=== PATIENT | male | born 1995 | race Two or more races ===

== ENCOUNTER 2024-07-13 13:38 | Emergency (ER) | payer SELFPAY ==
[2024-07-13 13:46] VITALS: BP 134/75; PULSE 103; RESP 20; TEMP 98.4; BMI 33.8
[2024-07-13] MEDS ORDERED: METOCLOPRAMIDE HCL INJECTION 10 MG/2 ML VIAL ONE (14:06)
[2024-07-13] MEDS ORDERED: KETOROLAC TROMETHAMINE 30 MG/1 ML VIAL ONE (14:06)
[2024-07-13] MEDS: KETOROLAC TROMETHAMINE 30 MG/1 ML VIAL IVPUSH ONE (14:20)
[2024-07-13] MEDS: METOCLOPRAMIDE HCL INJECTION 10 MG/2 ML VIAL IVPUSH ONE (14:20)
[2024-07-13] MEDS: SODIUM CHLORIDE 1,000 ML IV STA (14:20)
[2024-07-13 14:31] LABS: ABSOLUTE IMMATURE GRANULOCYTES 0.03 x10^3/uL (0.0-0.031); BASOPHILS # 0.04 x10^3/uL (0.01-0.08); EOSINOPHIL % 1.3 % (0.8-7.0); EOSINOPHILS # 0.09 x10^3/uL (0.04-0.54); HEMOGLOBIN 15.8 g/dL (13.7-17.5); MCHC 34.3 g/dl (32.3-36.5); MEAN CELL VOLUME 84.9 fl (79.0-92.2); MEAN PLT VOLUME 10.3 fl (9.4-12.4); MONOCYTE % 8.9 % (5.3-12.2); PH,URINE 5.5 (5.0-8.0); PLATELET COUNT 277 x10^3/uL (163-337); URINE APPEARANCE CLEAR; URINE BILIRUBIN NEGATIVE (NEGATIVE); URINE COLOR YELLOW; URINE GLUCOSE (UA) NEGATIVE (NEGATIVE); URINE KETONE NEGATIVE (NEGATIVE); URINE LEUK ESTERASE NEGATIVE (NEGATIVE); URINE NITRITE NEGATIVE (NEGATIVE); URINE PROTEIN NEGATIVE (NEGATIVE); URINE UROBILINOGEN 0.2 mg/dL (0.2-1.0)
[2024-07-13 15:04] LABS: POTASSIUM 4.3 mmol/L (3.5-5.1)
[2024-07-13 15:06] LABS: CALCIUM 10.2 mg/dL (8.5-10.1)
[2024-07-13 15:07] LABS: ALBUMIN 4.6 g/dl (3.4-5.0); BLOOD UREA NITROGEN 11.6 mg/dL (7-18)
[2024-07-13 15:11] LABS: BILIRUBIN,TOTAL 1.1 mg/dL (0.2-1)
[2024-07-13 15:12] LABS: TOT PROT 7.8 g/dl (6.4-8.2)
[2024-07-13 16:04] LABS: HCV DIAGNOSTIC IN-HOUSE W/RFLX NON-REACTIVE (NONREACTIVE); HIV INTERPRETATION NEGATIVE (NEGATIVE)
== END 2024-07-13 15:51 | disposition left against medical advice (07) ==
LOC: JER 13:38
PROC: 3E0333Z Introduction of Anti-inflammatory into Peripheral Vein, Percutaneous Approach (ICD-10-PCS; principal; 2024-07-13)
PROC: 3E033GC Introduction of Other Therapeutic Substance into Peripheral Vein, Percutaneous Approach (ICD-10-PCS; 2024-07-13)
PROC: 3E0337Z Introduction of Electrolytic and Water Balance Substance into Peripheral Vein, Percutaneous Approach (ICD-10-PCS; 2024-07-13)
DX: R11.2 Nausea with vomiting, unspecified (principal); R51.9 Headache, unspecified
CPT/HCPCS: 0241U-QW; 36415; 80053; 81003; 85025; 86803; 87389; 99284-25